=== PATIENT | female | born 1980 | race Hispanic/Latino ===

== ENCOUNTER → 2025-03-12 | Outpatient (CLI) | payer OTHER ==
[~2025-03-12] MED LIST: IOHEXOL 350 MG/ML 100ML INFUS..BTL IV ONE
--- NOTE | 2025-03-13 10:03 | HMCIMG ---
EXAMINATION: CT Abdomen and Pelvis with and without IV contrast CLINICAL HISTORY: Patient presents with lower abdominal pain. TECHNIQUE: Axial computed tomography images of the abdomen and pelvis were acquired with and without intravenous contrast. CONTRAST: 99 mL IV contrast. COMPARISON: 07/10/2003.FINDINGS: LUNG BASES: Clear. LIVER: Diffusely decreased attenuation consistent with hepatic steatosis. GALLBLADDER AND BILE DUCTS: Gallbladder surgically absent. No biliary ductal dilatation. PANCREAS: Unremarkable. SPLEEN: Mildly enlarged, measuring 12.7 cm. ADRENAL GLANDS: Unremarkable. KIDNEYS, URETERS, AND BLADDER: Kidneys unremarkable without hydronephrosis or calculi. Urinary bladder suboptimally distended. STOMACH AND BOWEL: No bowel obstruction. Bowel wall prominence in the sigmoid colon which may be due to underdistension or mild colitis. Uncomplicated colonic diverticula. APPENDIX: Normal appendix. PERITONEUM: Complete interval resolution of the previously demonstrated ill-defined hypodense fluid with associated fat stranding in the gallbladder fossa and subhepatic region.No free fluid or free air. LYMPH NODES: No significant lymphadenopathy. REPRODUCTIVE: Unremarkable as visualized. VASCULATURE: No abdominal aortic aneurysm. BONES: Multilevel mild spondylosis. ADDITIONAL FINDINGS: Small fat-containing umbilical hernia. Few right-sided pelvic phleboliths. Small hiatus hernia.IMPRESSION: Bowel wall prominence in the sigmoid colon which may be due to underdistension or mild colitis. No bowel obstruction. Uncomplicated colonic diverticula. Normal appendix. Diffuse hepatic steatosis. Mild splenomegaly. Small fat-containing umbilical hernia. Interval new small hiatus hernia. /[place]
== END | disposition home or self-care (01) ==
LOC: RAH 10:24
PROVIDERS: ATTEND Internal Medicine
DX: K57.30 Diverticulosis of large intestine without perforation or abscess without bleeding (principal); K42.9 Umbilical hernia without obstruction or gangrene; K44.9 Diaphragmatic hernia without obstruction or gangrene; M47.816 Spondylosis without myelopathy or radiculopathy, lumbar region; R16.1 Splenomegaly, not elsewhere classified; R10.30 Lower abdominal pain, unspecified; Z90.49 Acquired absence of other specified parts of digestive tract
CPT/HCPCS: 74178; Q9967